=== PATIENT | male | born 1960 | race Caucasian/White ===

== ENCOUNTER 2017-10-28 10:39 | Outpatient (CLI) | payer BC ==
[2017-10-28] VITALS (16 sets, daily range): BP systolic 122–159; BP diastolic 62–80; Ht 177.8 cm; Wt 103.3 kg
[~2017-10-28] VITALS: Ht 177.8 cm; Wt 103.3 kg
--- NOTE | ~2017-10-28 | HEMODYNAMI ---
PATIENT:ROYA RAE MEDICAL RECORD: [id number] : 62 LOCATION:[facility]# [id number] ADMISSION DATE: 10/28/17 Generatedon:10/28/201712:11 Patient name: ROYA RAE Patient #: [id number] SSN: : 1960 Date of study: 10/28/2017 Page: Of Hemodynamic Procedure Report Patient Data Patient Demographics Procedure consent was obtained First Name: ROYA Gender: Male Last Name: BUTCH : 1960 Patient #: [id number] Age: 57 year(s) Race: Unknown Additional ID: [id number] Contact details Address: [address] [facility] State: [place] City: [place] Zip code: [address] Past Medical History Allergies Allergen Reaction Date Comments Reported Other allergy 10/28/2017 PLAVIX Admission Admission Data Admission Date: 10/28/2017 Admission Time: 10:39 Procedure Procedure Types Cath Procedure Diagnostic Procedure LHC LHC w/Coronaries Sedation Charges Moderate Sedation up to 30 minutes PCI Procedure AMI/SVG/PLASTIC SHEETING CUTTER PTCA or Stent AMI-BMS/KAELYN Initial Procedure Description Procedure Date Procedure Date: 10/28/2017 Procedure Start Time: 11:24 Procedure End Time: 12:10 Procedure Staff Name Function Gomez Zhu MD Performing Physician Tia Sanders RT Monitor Wilbert Fortune RN Nurse Raf Perdomo RT Scrub Procedure Data Cath Procedure Fluoroscopy Diagnostic fluoroscopy Total fluoroscopy Time: 3.8 time: 3.8 min min Diagnostic fluoroscopy Total fluoroscopy dose: 615 dose: 615 mGy mGy Contrast Material Contrast Material Type Amount (ml) Isovue 300 75 Entry Location Entry Primary Successful Side Size Upsize Upsize Entry Closure Succes sful Closure Location (Fr) 1 (Fr) 2 (Fr) Remarks Device Remarks Femoral Right 6 Fr Exoseal artery Short Estimated blood loss: 10 ml Diagnostic catheters Device Type Used For End Catheter Placement MULTIPACK JL 4.0 5Fr Left Coronary catheter Angiography MULTIPACK 3DRC 5Fr Right Coronary catheter Angiography MULTIPACK Pigtail 5 Fr LV Angiography catheter Procedure Complications No complications Procedure Medications Medication Administration Route Dosage Oxygen NC 2 l/min Lidocaine 2% added to field 20 Heparin Flush Bag added to field 2 bags (1000units/500ml NS) 0.9% NaCl I.V. 100 ml/hr Versed I.V. 2 mg Fentanyl I.V. 25 mcg Versed I.V. 1 mg Fentanyl I.V. 25 mcg Angiomax (bolus) I.V. 16 ml Angiomax Drip I.V. drip 36.4 ml/hr (250mg/50ml NS) (Standard) Nitroglycerin IC/IA I.C. 200 mcg Angiomax Drip 36.4 ml/hr (250mg/50ml NS) (Standard) Hemodynamics Rest Heart Rate: 57 (bpm) Pressure Samples Time Site Value (mmHg) Purpose Heart Use Rate(bpm) 11:33 LV 180/-10,33 EDP 66 11:33 AO 161/84(117) Pullback 66 Gradients Valve Time Site Site 2 Mean SEP/DFP Peak To Heart Use 1 (mmHg) (sec/min) Peak Rate (mmHg) (bpm) Aortic 11:33 LV AO 6 20 66 161/84(117) Calculations Valve P-P Mean Valve Index Valve Source Name Gradient Area Flow (cm2) Aortic 6 6 Snapshots Pre Cath Intra NCS Post Cath Vital Signs Time Heart Resp SPO2 etCO2 NIBP (mmHg) Rhythm Pain Sedation Rate (ipm) (%) (mmHg) Status Level (bpm) 11:16:31 62 20 99 0 168/84(144) NSR w/ ST 0 (11) 10(A) Elevation , No pain 11:21:02 69 30 100 31.3 162/87(127) NSR w/ ST 0 (11) 10(A) Elevation , No pain 11:25:28 62 15 100 28.3 164/81(129) NSR w/ ST 0 (11) 10(A) Elevation , No pain 11:29:52 58 18 98 19.4 150/76(125) NSR w/ ST 0 (11) 10(A) Elevation , No pain 11:34:16 61 19 100 23.8 166/83(129) NSR w/ ST 0 (11) 10(A) Elevation , No pain 11:38:43 65 18 100 35.8 166/88(137) NSR w/ ST 0 (11) 10(A) Elevation , No pain 11:43:15 58 21 99 30.6 145/71(121) NSR 0 (11) 10(A) , No pain 11:47:31 72 26 98 30.6 158/115(130) NSR 0 (11) 10(A) , No pain 11:51:45 70 15 97 29.8 136/78(100) NSR 0 (11) 10(A) , No pain 11:56:05 65 15 98 34.3 138/73(123) NSR 0 (11) 10(A) , No pain 12:00:23 63 29 96 31.3 140/77(115) NSR 0 (11) 10(A) , No pain 12:04:43 65 23 96 37.2 134/75(105) NSR 0 (11) 10(A) , No pain 12:09:06 62 7 99 35.8 138/71(115) NSR 0 (11) 10(A) , No pain Medications Time Medication Route Dose Verified Delivered Reason Notes Effectiveness by by 11:17:31 Oxygen NC 2 Gomez Buffie used for l/min Marko Fortune RN procedure 11:17:38 Lidocaine 2% added to field 20ml Gomez Gomez for local vial Marko Zhu MD anesthetic 11:17:43 Heparin Flush added to field 2 Gomez Gomez used for Bag bags Marko Zhu MD procedure (1000units/500ml NS) 11:17:52 0.9% NaCl I.V. 100 Gomez Buffie Per physici an ml/hr Marko Fortune RN, MD 11:20:12 Versed I.V. 2 mg Gomez Buffie for sedatio n Marko Fortune RN, MD 11:20:18 Fentanyl I.V. 25 Gomez Buffie for sedatio n mcg Marko Fortune RN, MD 11:26:25 Versed I.V. 1 mg Gomez Buffie for sedatio n Marko Fortune RN, MD 11:26:30 Fentanyl I.V. 25 Gomez Buffie for sedatio n mcg Marko Fortune RN, MD 11:40:14 Angiomax (bolus) I.V. 16 ml Gomez Buffie for 250mg/50mlNS Marko Fortune RN anticoagulation 11:40:57 Angiomax Drip I.V. drip 36.4 Gomez Wilbert for (250mg/50ml NS) ml/hr Marko Fortune RN anticoagulation (Standard) 11:48:55 Nitroglycerin I.C. 200 Gomez Gomez Per physici an IC/IA mcg Marko Zhu MD, MD 11:49:53 Angiomax Drip I.V. 36.4 Gomez Gomez for (250mg/50ml NS) drip-discontinued ml/hr Marko Zhu MD anticoagulation (Standard) Procedure Log Time Note 11:10:08 Time tracking: Regular hours 11:10:12 Plan of Care:Hemodynamics will remain stable., Cardiac rhythm will remain stable., Comfort level will be maintained., Respiratory function will remain adequate., Patient/ family verbilizes understanding of procedure., Procedure tolerated without complication., Recovers from procedure without complications.. 11:10:17 Wilbert Fortune RN sent for patient. Start room use. 11:10:40 Use device set Femoral Dx 11:10:41 ACIST Syringe (16908) opened to sterile field. 11:10:42 Bag Decanter (2002S) opened to sterile field. 11:10:42 Medline Cath Pack ([id number]) opened to sterile field. 11:10:44 DIAGNOSTIC WIRE .035 260cm J wire (110428) opened to sterile field. 11:10:45 ACIST Hand Control (27683) opened to sterile field. 11:10:46 ACIST Manifold (27743) opened to sterile field. 11:10:47 DIAGNOSTIC Multipack 5Fr catheter set (LT1022) opened to sterile field. 11:10:48 Tegaderm 4 x 4 (1626W) opened to sterile field. 11:10:50 MICROPUNCTURE 4FR Cook (V86318) opened to sterile field. 11:11:42 Patient received from ED to CCL 2 Alert and oriented. Tansferred to table in Supine position. 11:11:42 Warm blankets applied, and namrata hugger turned on for patient comfort. 11:11:43 Correct patient and procedure confirmed by team. 11:11:44 Signed procedure consent form obtained from patient. 11:11:44 ECG and BP/O2 sat monitors applied to patient. 11:15:11 Vital chart was started 11:15:18 Rhythm: sinus rhythm 11:15:20 Full Disclosure recording started 11:15:26 H&P Date Dictated: 10/28/2017 Emergent; H&P N/A, ER History on chart.. 11:15:27 Pre-procedure instructions explained to patient. 11:15:27 Pre-op teaching completed and patient verbalized understanding. 11:15:28 Family in waiting room. 11:15:30 Patient NPO since Midnight. 11:15:45 Patient allergic to Other allergyPLAVIX 11:16:03 Is the patient allergic to Iodine/contrast media? No. 11:16:05 Is patient on blood thinner?No 11:16:09 Patient diabetic? No. 11:16:12 Previous problem with sedation/anesthesia? No ? 11:16:13 Snore? Yes 11:16:14 Sleep apnea? No 11:16:15 Deviated septum? No 11:16:16 Opens mouth fully? Yes 11:16:16 Sticks out tongue? Yes 11:16:21 Airway obstruction? No ? 11:16:30 Dentures? Yes PARTIAL OUT 11:16:32 Pre procedure: right dorsailis pedis pulse 2+ Normal; easily identifiable; not easily obliterated 11:16:36 Patient pain scale 0/10 ?. 11:16:41 IV patent on arrival in right hand with 0.9% NaCl at [facility]. 11:16:58 IV: SALINE LOCK IN LEFT HAND 11:17:09 Lab results completed and on chart. 11:17:12 Right groin area was prepped with chlora-prep and draped in sterile fashion 11:17:12 Alarms reviewed by R. N. 11:17:13 Sharps counted by scrub and verified by R.N. 11:17:31 Oxygen 2 l/min NC was administered by Wilbert Fortune RN; used for procedure; 11:17:31 SHEATH Prelude 6Fr 0.035 (NXI-7X-59-035) opened to sterile field. 11:17:38 Lidocaine 2% 20ml vial added to field was administered by Gomez Zhu MD; for local anesthetic; 11:17:43 Heparin Flush Bag (1000units/500ml NS) 2 bags added to field was administered by Gomez Zhu MD; used for procedure; 11:17:52 0.9% NaCl 100 ml/hr I.V. was administered by Buffie Fortune RN; Per physician; 11:17:59 Final Timeout: patient, procedure, and site verified with staff and physician. All members of the team are in agreement. 11:18:01 Right groin site verified by team. 11:18:03 Physical assessment completed. ASA score P 2 - A patient with mild systemic disease as per Gomez Zhu MD. 11:18:06 Sedation plan: IV Moderate Sedation Medication:Versed, Fentanyl 11:20:01 Baseline sample Acquired. 11:20:12 Versed 2 mg I.V. was administered by Wilbert Fortune RN; for sedation; ::18 Fentanyl 25 mcg I.V. was administered by Wilbert Fortune RN; for sedation; 11::42 Zero performed for pressure channel P1 11::58 Procedure started. 11:24:37 Local anesthetic to right femoral artery with Lidocaine 2% by Gomez Zhu MD.INITIAL ACCESS ONLY 11:26:25 Versed 1 mg I.V. was administered by Wilbert Forutne RN; for sedation; ::30 Fentanyl 25 mcg I.V. was administered by Wilbert Fortune RN; for sedation; 11:28:16 Access obtained with 4Fr micropunture. 11:28:23 A 6 Fr Short sheath was inserted into the Right Femoral artery 11:28:30 A MULTIPACK JL 4.0 5Fr catheter was advanced over the wire and used for Left Coronary Angiography. 11:30:58 Catheter removed. 11:31:08 A MULTIPACK 3DRC 5Fr catheter was advanced over the wire and used for Right Coronary Angiography. 11:31:41 Use device set NORRED PCI 11:31:48 INFLATOR Merit BasixCompak (DS3886) opened to sterile field. 11:31:49 COPILOT Valve Control (9382523) opened to sterile field. 11:31:52 BMW 190cm [place] 2 J wire ([id number]) opened to sterile field. 11:32:23 A MULTIPACK Pigtail 5 Fr catheter was advanced over the wire and used for LV Angiography. 11:33:25 LV gram done using DUTTON 11:33:30 Injector settings: Ml/sec: 10, Volume: 20, 11:33:39 LV hemodynamics recorded. 11:36:11 GUIDE 6FR ART 3.5 SH catheter ([id number]) opened to sterile field. 11:36:44 6 Fr ART 3.5 SH guide catheter was inserted over the wire 11:38:52 BMW wire advanced. 11:40:14 Angiomax (bolus) 16 ml I.V. was administered by Wilbert Fortune RN; for anticoagulation; 250mg/50mlNS 11:40:57 Angiomax Drip (250mg/50ml NS) (Standard) 36.4 ml/hr I.V. drip was administered by Wilbert Fortune RN; for anticoagulation; 11:42:05 Inflation number: 1 A EUPHORA 2.0 x 30 Balloon ([id number]) was prepped and advanced across the Mid RCA, then inflated to 10 AVIS for 0:07 (min:sec). 11:42:22 Inflation number: 2 The EUPHORA 2.0 x 30 Balloon ([id number]) was reinflated across the Mid RCA, to 10 AVIS for 0:07 (min:sec). 11:42:45 Balloon removed over the wire. 11:46:05 Inflation Number: 3 A WILBERT RX 3.5 x 30 stent ([id number]) was prepped and advanced across the Mid RCA. The stent was deployed at 16 AVIS for 0:14 (min:sec). 11:46:54 Stent catheter was removed intact over wire. 11:48:55 Nitroglycerin IC/IA 200 mcg I.C. was administered by Gomez Zhu MD; Per physician; 11:49:20 Wire removed. 11:49:22 Guide catheter removed. 11:49:53 Angiomax Drip (250mg/50ml NS) (Standard) 36.4 ml/hr I.V. drip-discontinued was administered by Gomez Zhu MD; for anticoagulation; 11:50:36 Sheath removed intact; hemostasis achieved with Exoseal to the Right Femoral artery. 11:50:41 Procedure ended.(Physican Out) 11:51:02 Fluoroscopy time 03.80 minutes. 11:51:06 Fluoroscopy dose: 615 mGy 11:51:06 Flurop Dose total: 615 11:51:09 Contrast amount:Isovue 300 75ml. 11:51:10 Sharps counted by scrub and verified by R.N. 11:51:12 Insertion/operative site no bleeding no hematoma. 11:51:14 Post-op/insertion site Right Femoral artery dressed using a 4 x 4 and Tegaderm. 11:51:17 Post right femoral artery:stable, clean and dry 11:51:19 Post Procedure Pulses reassessed and unchanged 11:51:21 Post-procedure physical assessment completed. ASA score P 2 - A patient with mild systemic disease as per Gomez Zhu MD. 11:51:23 Post procedure rhythm: unchanged. 11:51:26 Estimated blood loss: 10 ml 11:51:27 Post procedure instruction explained to patient.Patient verbalizes understanding. 11:51:27 Patient needs reinforcement of post procedure teaching. 11:51:33 Procedure Complication : No complications 11:51:35 See physician's report for complete and final results. 11:51:52 EXOSEAL 6Fr (EX600) opened to sterile field. 11:52:01 CALLED FOR CV BED 11:53:54 Procedure type changed to Cath procedure, Diagnostic procedure, LHC, LHC w/Coronaries, Sedation Charges, Moderate Sedation up to 30 minutes, PCI procedure, AMI/SVG/PLASTIC SHEETING CUTTER PTCA or Stent, AMI-BMS/KAELYN Initial 11:55:05 Procedure and supply charges have been captured, reviewed, submitted and are correct. 11:58:18 NUNO CALLED BACK , PATIENT GOING TO CV03 WAITING ON STAT CLEAN. 12:10:36 Vital chart was stopped 12:10:39 Report given to CVICU. 12:10:43 Patient transfered to CVICU with Bed. 12:10:51 Procedure ended. 12:10:51 Full Disclosure recording stopped 12:10:55 End room use (Document Last) Intervention Summary Intervention Notes Time ActionType Lesion and Equipment Used Action# Pressure Duration Attributes 11:42:05 Inflate Mid RCA EUPHORA 2.0 x 1 10 00:08 balloon 30 Balloon ([id number]) 11:42:22 Reinflate Mid RCA EUPHORA 2.0 x 2 10 00:08 balloon 30 Balloon ([id number]) 11:46:05 Place stent Mid RCA WILBERT RX 3.5 x 3 16 00:14 30 stent ([id number]) Device Usage Item Name Manufacture Quantity Catalog Number Hospital Part Current Minimal Lot# / Charge Number Stock Stock Serial# Code ACIST Syringe Acist 1 22292 733030 263187 678008 20 (27409) Medical Systems Inc Bag Decanter Microtek 1 2001S 449216 54689 935970 5 (2001S) Medical Inc. Medline Cath Cardinal 1 [id number] 051636 40212 936478 5 Pack Health ([id number]) DIAGNOSTIC WIRE [place] 1 370730 122683 162458 989374 30 .035 260cm J wire (889107) ACIST Hand Acist 1 61960 675328 435355 402345 5 Control (66043) Medical Systems Inc ACIST Manifold Acist 1 24747 579491 381852 082886 5 (94852) Medical Systems Inc DIAGNOSTIC Cardinal 1 GB6802 908767 02718 154416 30 Multipack 5Fr Health catheter set (BG6207) Tegaderm 4 x 4 3M 1 1626W 966806 852979 728108 5 (1626W) MICROPUNCTURE Cook Medical 1 B72227 639495 970235 322856 5 4FR Include Fitness (N99554) SHEATH Prelude Merit 1 ROO-8W-55-35 608066 8365484 084836 5 6Fr 0.035 Medical (URW-5D-30-035) MULTIPACK JL Cardinal 1 497884 5 4.0 5Fr Health catheter MULTIPACK 3DRC Cardinal 1 600767 5 5Fr catheter Health INFLATOR Merit Merit 1 YF4976 644355 951815 659394 15 [facility] (WR7733) COPILOT Valve Alexander 1 8125132 802594 605794 372034 5 Control Vascular (3489159) BMW 190cm Alexander 1 [id number] 083283 53774 373802 5 [place] 2 J Vascular wire (3635055P) MULTIPACK Cardinal 1 147167 5 Pigtail 5 Fr Health catheter GUIDE 6FR ART [place] 1 [id number] 070211 181734 741611 0 3.5 SH catheter Scientific ([id number]) EUPHORA 2.0 x Medtronic 1 [id number] 237639 283111 086332 5 [id number] 30 Balloon ([id number]) WILBERT RX 3.5 x Medtronic 1 [id number] 073988 2091385 933236 5 [id number] 30 stent ([id number]) EXOSEAL 6Fr Cardinal 1 EX600 240461 969366 180527 10 (EX600) Health Signature Audit [place] Stage Time Signature Unsigned Intra-Procedure 10/28/2017 Tia 12:11:09 PM Counts RT(R) Signatures Monitor : Tia Signature : Counts RT Date : Time : [address] [place] [address]
[2017-10-28 10:58] LABS: BASOPHILS 0.3 % (0-2); EOSINOPHILS 1.2 % (0-7); HEMATOCRIT 45.5 % (42.0-54.0); HEMOGLOBIN 15.8 g/dL (13.5-17.5); IMMATURE GRANULOCYTES 0.6 % (0-5); LYMPHOCYTES 33.1 % (15-50); MCH 31.7 pg (26.0-34.0); MCHC 34.7 g/dL (31.0-37.0); MCV 91.2 fL (80.0-100.0); MEAN PLATELET VOLUME 10.5 fL (7.4-10.4); MONOCYTES 7.9 % (2-11); NEUTROPHILS 56.9 % (40-80); PLATELET COUNT 253 10x3/uL (130-400); RBC 4.99 10x6/uL (4.20-6.10); RDW 12.8 % (11.5-14.5); WBC 13.3 10x3/uL (4.8-10.8)
[2017-10-28 11:23] LABS: ALBUMIN 3.4 g/dL (3.4-5.0); ALKALINE PHOSPHATASE 68 U/L (46-116); ALT (SGPT) 42 U/L (10-68); BILIRUBIN - TOTAL 0.47 mg/dL (0.2-1.3); CALC OSMOLALITY 274 mosm/kg (275-300); CALCIUM 8.9 mg/dL (8.5-10.1); CARBON DIOXIDE 25.5 mmol/L (21.0-32.0); CHLORIDE - SERUM 100 mmol/L (98-107); CHOL - HDL RATIO 6.7 ratio (2.3-4.9); CHOLESTEROL, TOTAL 193 mg/dL (0-200); CKMB 0.6 U/L (0.0-3.6); CREATINE KINASE 132 UL (21-232); CREATININE - SERUM 0.9 mg/dL (0.6-1.3); GLUCOSE 172 mg/dL (74-106); HDL CHOLESTEROL 29 mg/dL (32-96); POTASSIUM - SERUM 4.7 mmol/L (3.5-5.1); SODIUM 134 mmol/L (136-145); TRIGLYCERIDE 420 mg/dL (30-200); UREA NITROGEN 21 mg/dL (7-18); eGFR NON AFRICAN AMERICAN > 90 mL/min (90-120)
[2017-10-28 11:29] LABS: TROPONIN-I < 0.017 ng/mL (0.000-0.060)
[2017-10-29] VITALS (12 sets, daily range): BP systolic 116–146; BP diastolic 59–79
[2017-10-29] MEDS ORDERED: LIPITOR20 MG PO (10:54)
[2017-10-29] MEDS ORDERED: BRILINTA90 MG PO (10:54)
[2017-10-29] MEDS ORDERED: LISINOPRIL10 MG PO (10:55)
== END 2017-10-29 12:49 | disposition home or self-care (01) ==
LOC: OBSVTIME → D.ER 10:39 → D.CATH 10:39 → EDSTATUS 11:30 → D.CVICU 13:02 → D.ER 13:02 → D.CVICU 13:02 → OBSVTIME 13:02 → D.CVICU 10-29 12:49 → D.CATH 10-29 12:49
PROVIDERS: Emergency Medicine
DX: I21.3 ST elevation (STEMI) myocardial infarction of unspecified site (principal); Z72.0 Tobacco use

== ENCOUNTER → 2017-11-11 08:37 | Outpatient (CLI) | payer BC ==
[2017-10-28 14:37] VITALS: BMI 32.9
--- NOTE | ~2017-11-11 | EC ---
PATIENT:ROYA RAE DATE OF SERVICE: 11/11/17 SEX: M MEDICAL RECORD: [id number] DATE OF : 62 LOCATION:[facility] AGE OF PATIENT: 57 ADMISSION DATE: 11/11/17 REFERRING PHYSICIAN: INTERPRETING PHYSICIAN: RANJAN SABA MD ECHOCARDIOGRAM REPORT ECHO CHARGES 4 ECHO COMPLETE Date: 11/11 CLINICAL DIAGNOSIS: CAD ECHOCARDIOGRAPHIC MEASUREMENTS (adult normal given) AC root (d.<3.7cm) 3.6 cm LV Septum d (<1.2 cm> 1.3 cm Valve Excursion 2.0 cm LV Septum (systole) 1.9 cm Left Atria (s.<4.0cm> 3.3 cm LVPW d(<1.2cm) 1.4 cm RV (d.<2.3cm) 2.5 cm LVPW (sytole) 2.0 cm LV diastole(<5.6CM) 5.2 cm MV E-F(>70mm/sec) cm LV systole 3.6 cm LVOT Diameter 1.9 cm MV exc.(>10mm) cm Est.ejection fraction (50-75%) % DOPPLER: LVIT cm/sec A 46.0 cm/sec E 87.0 cm/sec LA cm/sec RVSP 24.0 mmHg LVOT 100 cm/sec AOP1/2T m/s Asc. Ao 143 cm/sec RVOT 71.0 cm/sec RA cm/sec PA 97.0 cm/sec AV Gradient Peak 8.2 mmHg AV Mean 4.3 mmHg AV Area 1.8 cm MV Gradient Peak 4.6 mmHg MV Mean 1.2 mmHg MV Area cm COMMENTS: Equipment Cleaner And Tester: 1 PIA ELLERSLIE Gunsmith Apprentice: 4 Dr. Saba TAPE# PACS Pericardial Effusion N DATE OF SERVICE: PROCEDURE: Transthoracic echocardiogram. FINDINGS: 1. Left ventricle has mild left ventricular hypertrophy with inflow characteristics that are normal. Ejection fraction 55% without any significant regional wall motion abnormalities. 2. The aortic valve is a trileaflet structure, normal. 3. The mitral valve has trace mitral regurgitation. ECHOCARDIOGRAM REPORT [id number] ROYA RAE 4. The left atrium is normal. 5. The tricuspid valve has trace tricuspid regurgitation. RVSP is normal. 6. The pericardium is normal. 7. The right ventricle is normal. 8. The right atrium is normal. CONCLUSIONS: The patient has evidence of mild left ventricular hypertrophy, otherwise normal echocardiogram. TRANSINT:[id number] Voice Confirmation ID: [id number] DOCUMENT ID: [id number] RANJAN SABA MD at 0741 CC: [id number] DICTATION DATE: 11/18/17 1049 WET INSPECTOR OPTICAL GLASS: 11/18/17 1223 DEP CLI 11/11/17 [id number] [place] [address]
[~2017-11-11 08:37] MED LIST: BRILINTA90 MG PO; LIPITOR20 MG PO; LISINOPRIL10 MG PO
== END | disposition home or self-care (01) ==
LOC: D.ECHO 08:37
DX: I25.10 Atherosclerotic heart disease of native coronary artery without angina pectoris (principal); E78.5 Hyperlipidemia, unspecified

== ENCOUNTER → 2017-11-11 16:20 | Outpatient (CLI) | payer BC ==
[2017-10-28 14:37] VITALS: BMI 32.9
[2017-11-11 16:45] LABS: CHOL - HDL RATIO 3.6 ratio (2.3-4.9); LDL-HDL RATIO 2.1 ratio (1.5-3.5)
== END | disposition home or self-care (01) ==
LOC: D.LABREF 16:20
PROVIDERS: Internal Medicine Cardiovascular Disease
DX: E78.5 Hyperlipidemia, unspecified (principal)

== ENCOUNTER → 2018-06-25 09:17 | Outpatient (CLI) | payer BC ==
[2017-10-28 14:37] VITALS: BMI 32.9
--- NOTE | ~2018-06-25 | ST ---
PATIENT:ROYA RAE MEDICAL RECORD: [id number] SEX: M LOCATION:[facility] ORDER #: ADMISSION DATE: 06/25/18 AGE OF PATIENT: 57 REFERRING PHYSICIAN: INTERPRETING PHYSICIAN: ANKITA MELGAR MD DATE OF SERVICE: 06/25/2018 PROCEDURES: Nuclear stress test. INDICATION: Chest pain, coronary artery disease, hypertension, hyperlipidemia. DESCRIPTION OF PROCEDURE: He was exercised in standard Lexiscan protocol with 33 mCi injected at peak stress, 11 mCi of sestamibi injected at rest previously for rest images. FINDINGS: Gated SPECT reveals a preserved ejection fraction at 65% with good wall motion and thickening and brightening throughout all segments. SPECT imaging Cardiolite was used as myocardial fusion agent. There is a mixed perfusion defect inferiorly. This includes the basal, mid, apical, inferior segments, partially fixed, partially reversible, includes the apex as well. The remaining segments with homogeneous uptake at rest and stress. OVERALL IMPRESSION: 1. This is an abnormal nuclear stress test with a mixed perfusion defect partially fixed, partially reversible throughout the inferior and apical segments. 2. Gated SPECT reveals preserved ejection fraction greater than 60%. In this patient with ongoing symptomatology, the current scan does suggest the presence of hemodynamically significant coronary artery disease. We will proceed with coronary angiography as followup study. TRANSINT:[id number] Voice Confirmation ID: [id number] DOCUMENT ID: [id number] ANKITA MELGAR MD at 1718 CC: LOREE SOLIS [id number] DICTATION DATE: 06/25/18 1616 TRANSPORTATION ENGINEERING TECHNICIAN: 06/26/18 0842 [facility] CLI 06/25/18 [id number] [place] [address]
== END | disposition home or self-care (01) ==
LOC: D.HCCARDIO 09:17
DX: I25.10 Atherosclerotic heart disease of native coronary artery without angina pectoris (principal)

== ENCOUNTER → 2018-07-04 06:50 | Outpatient (CLI) | payer BC ==
[2018-07-04 08:51] LABS: BASOPHILS 0.5 % (0-2); EOSINOPHILS 2.2 % (0-7); HEMATOCRIT 43.1 % (42.0-54.0); HEMOGLOBIN 14.7 g/dL (13.5-17.5); IMMATURE GRANULOCYTES 0.2 % (0-5); LYMPHOCYTES 26.2 % (15-50); MCH 31.6 pg (26.0-34.0); MCHC 34.1 g/dL (31.0-37.0); MCV 92.7 fL (80.0-100.0); MEAN PLATELET VOLUME 9.9 fL (7.4-10.4); MONOCYTES 7.3 % (2-11); NEUTROPHILS 63.6 % (40-80); PLATELET COUNT 225 10x3/uL (130-400); RBC 4.65 10x6/uL (4.20-6.10); RDW 12.5 % (11.5-14.5); WBC 8.8 10x3/uL (4.8-10.8)
[2018-07-04 08:57] LABS: CALC OSMOLALITY 281 mosm/kg (275-300); CALCIUM 9.5 mg/dL (8.5-10.1); CARBON DIOXIDE 29.3 mmol/L (21.0-32.0); CHLORIDE - SERUM 102 mmol/L (98-107); CREATININE - SERUM 0.9 mg/dL (0.6-1.3); GLUCOSE 174 mg/dL (74-106); POTASSIUM - SERUM 4.2 mmol/L (3.5-5.1); SODIUM 138 mmol/L (136-145); UREA NITROGEN 18 mg/dL (7-18); eGFR NON AFRICAN AMERICAN > 90 mL/min (90-120)
== END | disposition home or self-care (01) ==
LOC: D.CATH 06:50
PROVIDERS: Internal Medicine Interventional Cardiology
DX: I25.119 Atherosclerotic heart disease of native coronary artery with unspecified angina pectoris (principal); Z01.812 Encounter for preprocedural laboratory examination

== ENCOUNTER 2019-08-21 03:03 | Observation (INO) | payer BC ==
[~2019-08-21] VITALS: Ht 177.8 cm; Wt 104.1 kg
--- NOTE | ~2019-08-21 | HEMODYNAMI ---
PATIENT:ROYA RAE MEDICAL RECORD: [id number] : 62 [id number] ADMISSION DATE: 08/21/19 Generatedon:08/21/201914:29 Patient name: ROYA RAE Patient #: [id number] SSN: [id number] : 1960 Date of study: 08/21/2019 Page: Of Hemodynamic Procedure Report Patient Data Patient Demographics Procedure consent was obtained First Name: ROYA Gender: Male Last Name: BUTCH : 1960 Middle Initial: LOLITA Age: 59 year(s) Patient #: [id number] Race: SSN: [id number] Additional ID: [id number] Contact details Address: [address] State: [place] City: [place] Zip code: [address] Past Medical History Allergies Allergen Reaction Date Comments Reported Other allergy 10/28/2017 PLAVIX Other allergy 08/21/2019 PCN/CLOPIDOGREL(FROM PLAVIX) Admission Admission Data Admission Date: 08/21/2019 Admission Time: 6:18 Arrival Date: 08/21/2019 Arrival Time: 0:00 Admit Source: Emergency Insurance Payor: Private department health insurance Room #: D.2121 [facility] #: [id number] Height (in.): 70.08 BSA: 2.21 (m2) Height (cm.): 178 BMI: 32.82 (kg/m2) Weight (lbs.): 229.28 Weight (kg.): 104 Lab Results Lab Result Date: 08/21/2019 Lab Result Time: 0:00 Biochemistry Name Units Result Min Max BUN mg/dl 16 --(---*)-- 7 18 Creatinine mg/dl 0.8 --(-*--)-- 0.6 1.3 eGFR ml/min 90 --(*---)-- 90 120 NONAFRICAN CBC Name Units Result Min Max Hematocrit % 49.2 --(--*-)-- 42 54 Hemoglobin g/dl 17.1 --(---*)-- 13.5 17.5 Procedure Procedure Types Cath Procedure Diagnostic Procedure C LH w/Coronaries FFR/IVUS FFR Initial Sedation Charges Moderate Sedation up to 15 minutes PCI Procedure Coronary Stent Coronary Stent Initial Hemochron ACT Test Procedure Description Procedure Date Procedure Date: 08/21/2019 Procedure Start Time: 14:07 Procedure End Time: 14:27 Procedure Staff Name Function Marcel Stapleton MD Performing Physician Paty Maravilla RT Monitor Alexsander Winters RN Nurse Aliya Mcnair RT Scrub Indication CAD Procedure Data Cath Procedure Fluoroscopy Diagnostic fluoroscopy Total fluoroscopy Time: 2.7 time: 2.7 min min Diagnostic fluoroscopy Total fluoroscopy dose: 644 dose: 644 mGy mGy Contrast Material Contrast Material Type Amount (ml) Isovue 300 53 Entry Location Entry Primary Successful Side Size Upsize Upsize Entry Closure Garcia ccessful Closure Location (Fr) 1 (Fr) 2 (Fr) Remarks Device Remarks Radial Right 6 Fr Mechanical artery Short Compression Estimated blood loss: 10 ml Diagnostic catheters Device Type Used For End Catheter Placement DIAGNOSTIC Daniel 110cm Procedure 5Fr catheter ([id number]) Procedure Complications No complications Procedure Medications Medication Administration Route Dosage 0.9% NaCl I.V. 100 ml/hr Oxygen etCO2 Nasal cannula 2 l/min Heparin Flush Bag added to field 2 bags (1000units/500ml NS) Lidocaine 2% added to field 20 Radial Cocktail added to field 1 syringe (Verapamil 2mg/Nitro 400mcg/Heparin 1500units) Versed I.V. 2 mg Fentanyl I.V. 100 mcg Radial Cocktail I.A. 1 syringe (Verapamil 2mg/Nitro 400mcg/Heparin 1500units) Versed I.V. 2 mg Heparin Bolus I.V. 4000 units Hemodynamics Rest BSA: 2.21 (m2) HGB: 17.1 (g/dl) O2 Consumption: Estimated: 245.47 (ml/min) O2 Co nsumption indexed: Estimated:111.07 (ml/min/m) Heart Rate: 52 (bpm) Snapshots Pre Cath Intra NCS Post Cath Vital Signs Time Heart Resp SPO2 etCO2 NIBP (mmHg) Rhythm Pain Sedation Rate (ipm) (%) (mmHg) Status Level (bpm) 13:52:56 50 11 97 33 155/83(122) NSR 0 (11) 10(A) , No pain 13:57:10 50 20 96 26.9 153/83(108) NSR 0 (11) 10(A) , No pain 14:01:33 54 17 97 29.2 136/64(108) NSR 0 (11) 10(A) , No pain 14:05:38 50 15 95 27 116/74(92) NSR 0 (11) 10(A) , No pain 14:09:50 56 25 96 38.2 123/75(93) NSR 0 (11) 10(A) , No pain 14:14:00 61 11 94 26.2 99/60(75) NSR 0 (11) 9(A) , No pain 14:18:57 56 13 94 33 123/75(90) NSR 0 (11) 9(A) , No pain 14:23:15 52 14 95 38.2 136/72(99) NSR 0 (11) 9(A) , No pain 14:27:15 0 No Cuff NSR 0 (11) 9(A) , No pain Medications Time Medication Route Dose Verified Delivered Reason Not es Effectiveness by by 13:56:50 0.9% NaCl I.V. 100 Alexsander Alexsander Per physician ml/hr Singh Winters RN RN 13:57:00 Oxygen etCO2 2 l/min Alexsander Alexsander for low 02 sats Nasal Lorigan Singh cannula RN RN 13:57:12 Heparin Flush added 2 bags Alexsander Alexsander used for Bag to Lorigan Lornagi procedure (1000units/500ml [facility] RN RN NS) 13:57:25 Lidocaine 2% added 20ml Alexsander Alexsander for local to vial Lorigan Lorigan anesthetic RN RN 13:57:45 Radial Cocktail added 1 Alexsander Alexsander used for (Verapamil to syringe Lorigan Lorigan procedure 2mg/Nitro field RN RN 400mcg/Heparin 1500units) 14:10:19 Versed I.V. 2 mg Alexsander Alexsander for sedation Singh Winters RN RN 14:10:25 Fentanyl I.V. 100 mcg Alexsander Alexsander for sedation Singh Winters RN RN 14:10:34 Radial Cocktail I.A. 1 Alexsander Marcel for (Verapamil syringe Singh Stapleton MD vasodilation 2mg/Nitro RN 400mcg/Heparin 1500units) 14:13:02 Versed I.V. 2 mg Alexsander Alexsander for sedation Singh Winters RN RN 14:16:48 Heparin Bolus I.V. 4000 Alexsander Alexsander for units Singh Winters anticoagulation RN printing technician Log Time Note 13:35:47 Alexsander Winters RN sent for patient. Start room use. 13:41:18 Informed consent obtained and on chart 13:41:59 Indication : CAD 13:44:40 Patient Height : 70.08 inches 13:44:45 Patient Weight : 229.28 lbs 13:44:53 Arrival Date: 08/21/2019 12:00:00 AM 13:45:19 Insurance Payor : Private health insurance 13:45:46 Admit Source: Emergency department 13:46:32 Lab Result : Hemoglobin 17.1 g/dl 13:46:32 Lab Result : Hematocrit 49.2 % 13:46:32 Lab Result : BUN 16 mg/dl 13:46:32 Lab Result : Creatinine 0.8 mg/dl 13:46:32 Lab Result : eGFR NONAFRICAN 90 ml/min 13:46:42 Procedure Status Urgent Heart Cath (IP). 13:46:49 Time tracking: Regular hours (M-F 7:00 - 5:00) 13:46:56 Plan of Care:Hemodynamics will remain stable., Cardiac rhythm will remain stable., Comfort level will be maintained., Respiratory function will remain adequate., Patient/ family verbilizes understanding of procedure., Procedure tolerated without complication., Recovers from procedure without complications.. 13:47:51 Patient received from Med II to CCL 1 Alert and oriented. Tansferred to table in Supine position. 13:47:53 Warm blankets applied, and namrata hugger turned on for patient comfort. 13:47:55 Correct patient and procedure confirmed by team. 13:47:55 ECG and BP/O2 sat monitors applied to patient. 13:47:56 Vital chart was started 13:47:57 Baseline sample Acquired. 13:52:12 Baseline sample Acquired. 13:52:24 Rhythm: sinus bradycardia 13:52:26 Full Disclosure recording started 13:52:27 - 13:52:43 H&P Date Dictated: 08/21/2019 Within 30 days and on chart., ER History o n chart.. 13:52:45 Pre-procedure instructions explained to patient. 13:52:46 Pre-op teaching completed and patient verbalized understanding. 13:52:59 Family unavailable. 13:53:05 Patient NPO since Midnight. 13:53:46 Patient allergic to Other allergyPCN/CLOPIDOGREL(FROM PLAVIX) 13:53:55 Is the patient allergic to Iodine/contrast media? No. 13:53:57 Was the patient premedicated? Yes 13:54:00 Is patient on blood thinner?Yes 13:54:04 ACC The patient was administered the following blood thiners within the last 24 hours: ACCBrilinta 13:54:50 BRILINTA TODAY 08-21-2019. 13:55:42 Patient diabetic? No. 13:55:45 ----Pre-sedation anethsthesia assessment.---- 13:55:54 Previous problem with sedation/anesthesia? No ? 13:55:57 Snore? Yes 13:56:00 Sleep apnea? No 13:56:03 Deviated septum? No 13:56:05 Opens mouth fully? Yes 13:56:07 Sticks out tongue? Yes 13:56:11 Airway obstruction? No ? 13:56:16 Dentures? No ? 13:56:24 Pre procedure: right dorsailis pedis pulse 2+ Normal; easily identifiable; not easily obliterated 13:56:32 Modified Jhon's test Ulnar < 7 seconds 13:56:50 0.9% NaCl 100 ml/hr I.V. was administered by Alexsander Winters RN; Per physician; Verbal order read back and verified. 13:56:55 Patient pain scale 0/10 ?. 13:57:00 Oxygen 2 l/min etCO2 Nasal cannula was administered by Alexsander Winters RN; for low 02 sats; Verbal order read back and verified. 13:57:12 Heparin Flush Bag (1000units/500ml NS) 2 bags added to field was administered by Alexsander Lorigan RN; used for procedure; Verbal order read back and verified. 13:57:25 Lidocaine 2% 20ml vial added to field was administered by Alexsander Winters RN; for local anesthetic; Verbal order read back and verified. 13:57:45 Radial Cocktail (Verapamil 2mg/Nitro 400mcg/Heparin 1500units) 1 syring e added to field was administered by Alexsander Winters RN; used for procedure; Verbal order read back and verified. 13:57:45 IV patent on arrival in left antecubital with 0.9% NaCl at [facility]. 13:57:52 Lab results completed and on chart. 13:57:59 Stress Test: no; N/A ? 14:00:29 Risk of Mortality: 0.1 14:00:34 Risk of blood transfusion: 0.8 14:00:39 Risk of MENDOZA: 4.5 14:00:44 Right Radial & Right Groin area was prepped with chlora-prep and draped in sterile fashion 14:00:46 Alarms reviewed by R. N. 14:00:47 Sharps counted by scrub and verified by R.N. 14:00:56 Use device set Radial Dx or PCI 14:00:59 ACIST Syringe (49098) opened to sterile field. 14:01:00 Medline Cath Pack ([id number]) opened to sterile field. 14:01:00 Bag Decanter (2002S) opened to sterile field. 14:01:01 ACIST Hand Control (76767) opened to sterile field. 14:01:02 ACIST Manifold (13043) opened to sterile field. 14:01:03 Tegaderm 4 x 4 (1626W) opened to sterile field. 14:01:03 MBrace Wrist Support ([id number]) opened to sterile field. 14:01:05 EMERALD Guide Wire (582-723) opened to sterile field. 14:01:07 SHEATH 6FR RAIN (6076988) opened to sterile field. 14:03:07 Zero performed for pressure channel P1 14:05:19 Physician arrived 14:05:20 --------ALL STOP TIME OUT------ 14:05:21 Final Timeout: patient, procedure, and site verified with staff and physician. All members of the team are in agreement. 14:05:25 Right Radial & Right Groin site verified by team. 14:05:32 Fire Safety Assessment: A--An alcohol-based skin anteseptic being used preoperatively., C--Open oxygen or nitrous oxide is being used., D--An ESU, laser, or fiber-optic light is being used. 14:05:36 Physical assessment completed. ASA score P 2 - A patient with mild systemic disease as per Marcel Stapleton MD. 14:05:43 1) 90+ Normal kidney functon but urine findings or structural abnormalities or genetic trait point to kidney disease. 14:05:51 Maximum allowable contrast dose (3.7 X eGFR X 0.75)249 ml. 14:06:01 Sedation plan: IV Moderate Sedation Medication:Versed, Fentanyl 14:07:31 Procedure started. 14:07:57 Local anesthetic to right radial artery with Lidocaine 2% by Marcel Stapleton MD.INITIAL ACCESS ONLY 14:08:58 A 6 Fr Short sheath was inserted into the Right Radial artery 14:09:38 A DIAGNOSTIC Daniel 110cm 5Fr catheter ([id number]) was advanced over the wire and used for Procedure. 14:09:58 LV gram done using DUTTON 14:10:02 Injector settings: Ml/sec: 5, Volume: 15, 14:10:19 Versed 2 mg I.V. was administered by Alexsander Winters RN; for sedation; Verbal order read back and verified. 14:10:25 Fentanyl 100 mcg I.V. was administered by Alexsander Winters RN; for sedation; Verbal order read back and verified. 14:10:26 EF : 60 % 14:10:34 Radial Cocktail (Verapamil 2mg/Nitro 400mcg/Heparin 1500units) 1 syring e I.A. was administered by Marcel Stapleton MD; for vasodilation; Verbal order read back and verified. 14:10:43 LCA angiography performed. 14:11:39 Injector settings: Ml/sec: 3, Volume: 6, 14:11:45 RCA angiography performed. 14:12:01 Injector settings: Ml/sec: 3, Volume: 6, 14:12:16 Catheter removed. 14:12:45 [place] Verrata Plus pressure wire (56217P) opened to sterile field. 14:12:55 INFLATOR Merit BasixCompak (KD5025) opened to sterile field. 14:13:02 Versed 2 mg I.V. was administered by Alexsander Winters RN; for sedation; Verbal order read back and verified. 14:13:37 GUIDE 6FR AR 2.0 catheter ([id number]) opened to sterile field. 14:13:55 6 Fr AR2 guide catheter was inserted over the wire 14:14:52 FFR/IFR wire advanced. 14:15:02 Wire advanced across lesion. 14:15:29 mRCA lesion measured at 0.84 with IFR 14:16:04 Pre PCI Site: [place] mRCA has 70% stenosis. 14:16:11 ACC Pre-intervention JESUS Flow is 3. 14:16:48 Heparin Bolus 4000 units I.V. was administered by Alexsander Winters RN; for anticoagulation; Verbal order read back and verified. 14:17:20 Place stent Inflation Number: 1 A WILBERT RX 3.5 x 30 stent ([id number]) was prepped and advanced across the Mid RCA . The stent was deployed at 21 AVIS for 0:00 (min:sec) . 14:17:36 Inflation number: 2 The stent balloon was then re-inflated across the Mid RCA to 21 AVIS for 0:00 (min:sec) . 14:18:55 Stent catheter was removed intact over wire. 14:19:07 Wire removed. 14:19:08 Guide catheter removed. 14:19:27 Post PCI Site: [place] mRCA has 0% stenosis. 14:19:39 ACC Post-intervention JESUS Flow is 3. 14:19:57 Procedure ended.(Physican Out) 14:20:07 ZEPHYR REGULAR TR BAND (197230) opened to sterile field. 14:20:18 Sheath removed intact; hemostasis achieved with Mechanical Compression to the Right Radial artery. 14:21:19 Contrast amount:Isovue 300 53ml. 14:21:32 Fluoroscopy time 02.70 minutes. 14::41 Flurop Dose total: 644 14::41 Fluoroscopy dose: 644 mGy 14:22:24 Dose Area Product 80984 mGy/cm. 14:22:28 Maximum allowable dose exceeded? No. 14:22:29 Sharps counted by scrub and verified by R.N. 14:22:55 [place] band inflated with 10cc of air. 14:23:04 Post right radial artery:stable 14:23:07 Post Procedure Pulses reassessed and unchanged 14:23:13 Post-procedure physical assessment completed. ASA score P 2 - A patient with mild systemic disease as per Marcel Stapleton MD. 14:23:18 Post procedure rhythm: unchanged. 14:23:22 Estimated blood loss: 10 ml 14:23:25 Post procedure instruction explained to patient.Patient verbalizes understanding. 14:23:26 Patient needs reinforcement of post procedure teaching. 14:24:04 Procedure type changed to Cath procedure, Diagnostic procedure, LHC, C w/Coronaries, FFR/IVUS, FFR Initial, Sedation Charges, Moderate Sedation up to 15 minutes, PCI procedure, Coronary Stent, Coronary Stent Initial, Hemochron ACT Test 14:25:49 ACT drawn and resulted at 268 seconds. (normal therapeutic range 180-24 0 seconds). 14:26:03 Procedure and supply charges have been captured, reviewed, submitted an d are correct. 14:27:31 Procedure Complication : No complications 14:27:34 Vital chart was stopped 14:27:37 [facility] Findings: MVD- PCI performed (see procedure note) 14:27:43 Operative report dictated upon procedure completion. 14:27:44 See physician's report for complete and final results. 14:27:50 Report given to [facility]. 14:27:54 Patient transfered to [facility] with Bed. 14:27:58 Procedure ended. 14:27:58 Full Disclosure recording stopped 14:28:27 End room use (Document Last) Intervention Summary Intervention Notes Time ActionType Lesion and Equipment Used Action# Pressure Duration Attributes 14:17:20 Place stent Mid RCA WILBERT RX 3.5 x 1 21 00:00 30 stent ([id number]) 14:17:36 Reinflate Mid RCA WILBERT RX 3.5 x 2 21 00:00 stent 30 stent balloon ([id number]) Device Usage Item Name Manufacture Quantity Catalog Hospital Part Current Minimal Lot# / Number Charge Number Stock Stock Serial# Code ACIST Syringe Acist 1 10057 838373 676411 207882 20 (55043) Medical Eventbrite Inc Medline Cath Medline 1 [id number] 961166 83063 459245 5 Pack ([id number]) Bag Decanter Microtek 1 110562 07022 818303 5 (2002S) Medical Inc. ACIST Hand Acist 1 49809 037264 534771 783929 5 Control Medical (73919) Systems Inc ACIST Manifold Acist 1 60781 676024 725581 062228 5 (53219) Medical Systems Inc Tegaderm 4 x 4 3M 1 1626W 527962 789920 580049 5 (1626W) MBrace Wrist Advanced 1 140-0250-00 066771 29702 438051 5 Support Vascular ([id number]) Dynamics EMERALD Guide Cardinal 1 502-455 778828 451548 800003 5 Wire (502-455) Health SHEATH 6FR Cardinal 1 0648732 121932 1666447 672211 5 RAIN (3233042) Health DIAGNOSTIC Terumo 1 405023 883024 375832 179089 5 Daniel 110cm 5Fr catheter (467181) [place] 1 06692T 794034 107775498 811829 5 Verrata Plus pressure wire (46981O) INFLATOR Merit Merit 1 FN4887 262056 641891 130663 15 PolyServe Medical (ZT4492) GUIDE 6FR AR Medtronic 1 [id number] 089554 82346 965196 1 2.0 catheter (FZ9GL93) WILBERT RX 3.5 x Medtronic 1 [id number] 984425 4349367 951409 5 [id number] 30 stent ([id number]) ZEPHYR REGULAR Cardinal 1 295866 844292 6892259 056053 5 TR [facility] Skybox Security (953604) Signature Audit [place] Stage Time Signature Unsigned Intra-Procedure 08/21/2019 Paty 2:28:53 PM Taiwo RT(R) (CV) Intra-Procedure 08/21/2019 Alexsander 2:29:23 PM Singh DE SANTIAGO Intra-Procedure 08/21/2019 Marcel Stapleton 2:29:45 PM [facility] [address] [place] [address]
[~2019-08-21 03:03] MED LIST changes: +BAYER CHEWABLE81 MG PO; +LOSARTAN POTASS25 MG PO; +RANITIDINE HCL150 M1 PO
[2019-08-21 03:19] VITALS: BP 148/86
[2019-08-21 03:40] LABS: BASOPHILS 0.6 % (0-2); EOSINOPHILS 4.1 % (0-7); HEMATOCRIT 49.2 % (42.0-54.0); HEMOGLOBIN 17.1 g/dL (13.5-17.5); IMMATURE GRANULOCYTES 0.6 % (0-5); LYMPHOCYTES 27.6 % (15-50); MCH 32.7 pg (26.0-34.0); MCHC 34.8 g/dL (31.0-37.0); MCV 94.1 fL (80.0-100.0); MEAN PLATELET VOLUME 9.9 fL (7.4-10.4); NEUTROPHILS 59.1 % (40-80); PLATELET COUNT 233 10x3/uL (130-400); RBC 5.23 10x6/uL (4.20-6.10); RDW 12.3 % (11.5-14.5); WBC 7.8 10x3/uL (4.8-10.8)
[2019-08-21 03:51] VITALS: BP 123/80
[2019-08-21 03:51] LABS: APTT 28.5 SECONDS (22.8-39.4); INR 0.91 (0.85-1.17); PROTIME 12.2 SECONDS (11.6-15.0)
[2019-08-21 03:52] LABS: D-DIMER-QUANTITATIVE 0.43 ug/mLFEU (0.20-0.54)
[2019-08-21 04:31] VITALS: BP 135/77
[2019-08-21 04:31] LABS: MAGNESIUM - SERUM 1.9 mg/dL (1.8-2.4)
[2019-08-21 04:32] LABS: ALKALINE PHOSPHATASE 101 U/L (46-116); ALT (SGPT) 37 U/L (10-68); CALC OSMOLALITY 282 mosm/kg (275-300); CALCIUM 8.3 mg/dL (8.5-10.1); CHLORIDE - SERUM 102 mmol/L (98-107); CREATININE - SERUM 0.8 mg/dL (0.6-1.3); GLUCOSE 176 mg/dL (74-106); POTASSIUM - SERUM 4.2 mmol/L (3.5-5.1); SODIUM 139 mmol/L (136-145); UREA NITROGEN 16 mg/dL (7-18); eGFR NON AFRICAN AMERICAN > 90 mL/min (90-120)
[2019-08-21 04:33] LABS: ALBUMIN 3.4 g/dL (3.4-5.0); BILIRUBIN - TOTAL 0.24 mg/dL (0.2-1.3); CKMB 2.8 U/L (0.0-3.6); CREATINE KINASE 74 UL (21-232); PROTEIN - SERUM 6.7 g/dL (6.4-8.2); TROPONIN-I < 0.017 ng/mL (0.000-0.060)
--- NOTE | 2019-08-21 04:55 | NUR ---
REPORT RECEIVED FROM JONNATHAN SWEET.
[2019-08-21 04:59] LABS: THYROID STIMULATING HORMONE 4.12 uIU/mL (0.36-3.74)
[2019-08-21 05:00] VITALS: BP 147/77
--- NOTE | 2019-08-21 07:57 | NUR ---
NEW PATIENT ADMIT FROM ER ARRIVAL TIME 0630. PATIENT LAYING IN BED ON BACK AWAKE, ALERT AND ORIENTED X 4. PATIENT DENIES ANY NEEDS OR PAIN. PATIENT NPO AWAITING CARDIOLOGY CONSULT. WILL CONTINUE WITH PLAN OF CARE. SR UP X 2 BED IN LOW POSITION AND CALL LIGHT IN REACH.
[2019-08-21 08:00] VITALS: BP 151/73
[2019-08-21 08:20] VITALS: BP 128/76; BMI 32.9
[2019-08-21 09:17] VITALS: Ht 177.8 cm; Wt 104.1 kg
--- NOTE | 2019-08-21 12:10 | NUR ---
PATIENT IS STABLE AND VSS. PATIENT DENIES ANY NEEDS OR PAIN. PER CALL FROM WELDING INSTRUCTOR TEAM, PATIENT PREOP ACCORDING ORDER. WILL CONTINUE TO MOITOR. SR UP X 2 BED IN LOW POSITION AND CALL LIGHT IN REACH.
--- NOTE | 2019-08-21 14:24 | HP ---
PATIENT: ROYA BOYKIN MEDICAL RECORD: [id number] ACCOUNT: [id number] LOCATION:[address] : 62 ADMISSION DATE: 08/21/19 PCP: LOREE SOLIS MD HISTORY AND PHYSICAL EXAMINATION DIAGNOSES: 1. Unstable angina. 2. Paroxysmal atrial fibrillation. 3. Coronary artery disease. 4. Previous coronary stenting. 5. Hypertension. 6. Hyperlipidemia. HISTORY OF PRESENT ILLNESS: Mr. Boykin presents with increasing episodes of chest pain and jaw pain. He was found to be in atrial fibrillation. He as well as had episodes of palpitations. The atrial fibrillation resolved. His symptomatology resolved as well. He has a history of coronary artery disease. Last cardiac stent was June 2018. He has been having episodes of chest pain and palpitations for the past month. He did not realize that he was having episodes of atrial fibrillation. His chest pain and jaw pain are like that of his previous angina prior to cardiac intervention in the past. His last intervention was June 2018. His EKG is with no acute ST-T abnormalities. PHYSICAL EXAMINATION: CONSTITUTIONAL/GENERAL APPEARANCE: Well nourished, well developed, appears stated age. EYES: Lids and conjunctivae noninjected. No discharge. No pallor. ENT: Lips within normal limit. No cyanosis. No pallor. NECK: Carotid arteries, bilateral normal upstroke. No bruits. No thrills. No jugular venous pressure or distention. CERVICAL LYMPH NODES: Nontender. Nonenlarged. THYROID: Not enlarged. No nodules. CARDIOVASCULAR: Precordial exam, nondisplaced. No heaves or pericardial thrills. Rate and rhythm, regular. Heart sounds, normal S1, normal S2. No S3, no gallop, no rub. Systolic murmur, not heard. Diastolic murmur, not heard. RESPIRATORY: Respiratory effort, unlabored. Normal curvature. No thoracic deformity. No chest wall tenderness. Percussion, resonant. Auscultation, clear. No wheezes, no rales, no rhonchi. ABDOMEN: Soft, nondistended, nontender. No abdominal pain, no vomiting and normal appetite. MUSCULOSKELETAL: No joint tenderness, normal gait, normal tone. SKIN: Warm and dry. OVERALL IMPRESSION: Increasing anginal symptomatology with episodes of atrial fibrillation. Most likely, he has recurrent hemodynamically significant coronary artery disease. We will proceed with coronary angiography. Further care depends upon the findings of the angiography. TRANSINT:[id number] Voice Confirmation ID: [id number] DOCUMENT ID: [id number] HISTORY AND PHYSICAL [id number] ROAY BOYKIN JEFFREY MD at 1424 CC: [id number] DICTATION DATE: 08/21/19917 LIPSTICK MOLDER: 08/21/19 1053 ADM IN [facility] [address] [id number]
--- NOTE | 2019-08-21 15:57 | NUR ---
PATIENT IS STABLE AND VSS. PATIENT LAYING IN BED ON BACK AWAKE, ALERT AND ORIENTED X 4. PATIENT DENIES ANY NEEDS OR PAIN. RT RADIAL DRSG C/D/I. NO SIGNS OF BLEEDING OR BRUISING. REMOVED 5 CC OF AIR FROM 10 CC. NO BLEEDING. WILL CONTINUE TO MONITOR. SR UP X 2 BED IN LOW POSITION AND CALL LIGHT IN REACH.
--- NOTE | 2019-08-21 16:56 | NUR ---
PATIENT SITTING UP IN BED AWAKE, ALERT AND ORIENTED X 4. PATIENT EATING SUPPER. REMOVED ADDITIONAL 5 CCS OF AIR FROM RT RADIAL BAND. NO BLEEDING BRUISING OR HEMATOMA NOTED. WILL CONTINUE TO MONITOR. SR UP X 2 BED IN LOW POSITION AND CALL LIGHT IN REACH.
--- NOTE | 2019-08-25 11:24 | DS ---
PATIENT:ROYA BOYKIN :62 MEDICAL RECORD: [id number] DISCHARGE SUMMARY ADMISSION DATE: 08/21/19 DISCHARGE DATE: 08/21/19 DIAGNOSES: 1. Angina. 2. Coronary artery disease. 3. Percutaneous transluminal coronary angioplasty stent right coronary artery this admission. 4. Paroxysmal atrial fibrillation. 5. Hypertension. 6. Hyperlipidemia. HOSPITAL COURSE: Mr. Boykin presents with paroxysmal atrial fibrillation and anginal symptomatology, found to have significant disease of the RCA, underwent successful PTCA stent of the RCA, was placed on sotalol 40 mg b.i.d., had no further angina, no further atrial fibrillation, discharged home to follow [facility] with [facility] 1 month. TRANSINT:[id number] Voice Confirmation ID: [id number] DOCUMENT ID: [id number] ANKITA MELGAR MD at 1124 CC: [id number] DICTATION DATE: 08/21/19 1426 PACKAGER HAND: 08/21/192109 DIS IN 08/21/19 [place] [id number] [place] [id number]
--- NOTE | 2019-08-25 11:24 | OP ---
PATIENT NAME: ROYA RAE MEDICAL RECORD: [id number] :62 LOCATION:D.M2 D.2121 ADMISSION DATE:08/21/19 SURGEON: ANKITA MELGAR MD DATE OF OPERATION: 08/21/2019 PROCEDURES: 1. PTCA stent RCA. 2. IFR. 3. Left heart catheterization. 4. Selective coronary angiography. 5. Left ventriculogram. INDICATION: Angina, coronary artery disease, and paroxysmal atrial fibrillation. DESCRIPTION OF PROCEDURE: After informed consent was obtained and after a detailed description of risks, benefits as well as alternative therapies, the patient elected to proceed with angiogram and angioplasty. The right radial area was prepped and draped in normal sterile fashion. Right radial artery was cannulated via modified Seldinger technique with the placement of 6-Divehi sheath. All catheters were exchanged through this sheath. FINDINGS: Left ventriculogram was performed in standard 30-degree DUTTON view reveals good cardiac wall motion, ejection fraction estimated 60%. SELECTIVE CORONARY ANGIOGRAPHY: 1. Left main is with no significant angiographic disease. 2. Left anterior descending has mild irregularities, but no flow-limiting stenosis. 3. The left circumflex has mild irregularities, but no flow-limiting stenosis. 4. Right coronary artery has 70% in-stent restenosis throughout the proximal mid vessel. IFR is abnormal. PTCA STENT OF THE RCA: The stent used was a 3.5 x 30 mm Leonel. Result was 0% residual stenosis. OVERALL IMPRESSION: Successful percutaneous transluminal coronary angioplasty stent of the right coronary artery going from 70% initial stenosis with an abnormal IFR to 0% residual. TRANSINT:[id number] Voice Confirmation ID: [id number] DOCUMENT ID: [id number] ANKITA MELGAR MD at 1124 CC: [id number] DICTATION DATE: 08/21/19 1425 NEEDLE LOOM OPERATOR HELPER: 08/21/19 1457 DIS IN 08/21/19 [place] [id number] [place] [id number]
--- NOTE | 2019-08-25 11:25 | EC ---
PATIENT:ROYA RAE DATE OF SERVICE: 08/21/19 SEX: M MEDICAL RECORD: [id number] DATE OF : 62 LOCATION:D.M2 D.212 AGE OF PATIENT: 59 ADMISSION DATE: 08/21/19 REFERRING PHYSICIAN: INTERPRETING PHYSICIAN: ANKITA STAPLETON MD ECHOCARDIOGRAM REPORT ECHO CHARGES 4 ECHO COMPLETE Date: 08/21/19 CLINICAL DIAGNOSIS: AFIB ECHOCARDIOGRAPHIC MEASUREMENTS (adult normal given) AC root (d.<3.7cm) 3.1 cm LV Septum d (<1.2 cm> 1.1 cm Valve Excursion 1.1 cm LV Septum (systole) 1.3 cm Left Atria (s.<4.0cm> 3.9 cm LVPW d(<1.2cm) 0.9 cm RV (d.<2.3cm) 2.8 cm LVPW (sytole) 1.0 cm LV diastole(<5.6CM) 5.9 cm MV E-F(>70mm/sec) cm LV systole 4.6 cm LVOT Diameter 2.0 cm MV exc.(>10mm) cm Est.ejection fraction (50-75%) % DOPPLER: LVIT cm/sec A 55 cm/sec E 100 cm/sec LA cm/sec RVSP 15.2 mmHg LVOT 92 cm/sec AOP1/2T m/s Asc. Ao 124 cm/sec RVOT 63 cm/sec RA cm/sec PA 92 cm/sec AV Gradient Peak 6.2 mmHg AV Mean 3.0 mmHg AV Area 2.1 cm MV Gradient Peak 3.6 mmHg MV Mean 1.0 mmHg MV Area cm COMMENTS: Slinger Sequins: Hubert ORTEGAFATUMA IVAN Restuarant Crew Worker: 1 Dr. Stapleton TAPE# PACS Pericardial Effusion N DATE OF SERVICE: 08/21/2019 PROCEDURE: Echocardiogram. FINDINGS: 1. Left ventricular chamber size is within normal limits. Left ventricular systolic function is normal. Overall ejection fraction estimated at 55% to 60%. 2. Left atrium, right atrium, and right ventricle chamber sizes are within normal limits. 3. Valvular structures have normal structure and motion. ECHOCARDIOGRAM REPORT [id number] ROYA RAE 4. Doppler interrogation reveals no significant valvular insufficiency or stenosis. Pulmonary systolic pressure estimated at 15 mmHg. 5. No evidence of pericardial effusion or left ventricular thrombus. TRANSINT:[id number] Voice Confirmation ID: [id number] DOCUMENT ID: [id number] ANKITA STAPLETON MD at 1125 CC: [id number] DICTATION DATE: 08/22/1939 CHEMICAL ENGINEERING INTERN: 08/22/19 1110 DIS IN 08/21/19 [place] [id number]
== END 2019-08-21 18:45 | disposition home or self-care (01) ==
LOC: D.ER 03:03 → OBSVTIME 06:18 → D.M2 06:18
PROVIDERS: Family Medicine; ADMIT Internal Medicine Interventional Cardiology; ATTEND Internal Medicine Interventional Cardiology
DX: I25.110 Atherosclerotic heart disease of native coronary artery with unstable angina pectoris (principal); I10 Essential (primary) hypertension; E78.5 Hyperlipidemia, unspecified; I48.0 Paroxysmal atrial fibrillation

== ENCOUNTER 2020-05-05 10:49 | Day surgery (SDC) | payer MEDICAID ==
[~2020-05-05] VITALS: Ht 177.8 cm; Wt 103.2 kg
--- NOTE | ~2020-05-05 | HEMODYNAMI ---
PATIENT:ROYA RAE MEDICAL RECORD: [id number] : 62 LOCATION:D.CAT ADMISSION DATE: 05/05/20 Generatedon:05/05/202013:28 Patient name: ROYA RAE Patient #: [id number] SSN: [id number] : 1960 Date of study: 05/05/2020 Page: Of Hemodynamic Procedure Report Patient Data Patient Demographics Procedure consent was obtained First Name: ROYA Gender: Male Last Name: BUTCH : 1960 [facility] Initial: LOLITA Age: 59 year(s) Patient #: [id number] Race: SSN: [id number] Additional ID: [id number] Contact details Address: [address] [facility] State: [place] City: [place] Zip code: [address] Past Medical History Allergies Allergen Reaction Date Comments Reported Other allergy 10/28/2017 PLAVIX Other allergy 08/21/2019 PCN/CLOPIDOGREL(FROM PLAVIX) Other allergy 05/05/2020 PCN/CLOPIDOGREL(FROM PLAVIX) Admission Admission Data Admission Date: 05/05/2020 Admission Time: 10:49 Arrival Date: 05/05/2020 Arrival Time: 0:00 Admit Source: Other Insurance Payor: Private health insurance [facility] #: [id number] Height (in.): 62 BSA: 2.03 (m2) Height (cm.): 157.48 BMI: 42.07 (kg/m2) Weight (lbs.): 230 Weight (kg.): 104.33 Lab Results Lab Result Date: 05/05/2020 Lab Result Time: 0:00 Biochemistry Name Units Result Min Max BUN mg/dl 20 --(----)*- 7 18 Creatinine mg/dl 0.7 --(*---)-- 0.6 1.3 eGFR ml/min 90 --(*---)-- 90 120 NONAFRICAN CBC Name Units Result Min Max Hematocrit % 43.3 --(*---)-- 42 54 Hemoglobin g/dl 14.8 --(-*--)-- 13.5 17.5 Procedure Procedure Types Cath Procedure Diagnostic Procedure PPM/ICD PPM Dual Implant Sedation Charges Moderate Sedation up to 30 minutes Procedure Description Procedure Date Procedure Date: 05/05/2020 Procedure Start Time: 12:47 Procedure End Time: 13:26 Procedure Staff Name Function Jovan Willis MD Performing Physician Alexsander Winters RN Nurse Ashwini Myers RT Scrub Paty Maravilla RT Monitor Christoph Quintero MD Assisting physician Indication Bradycardia Procedure Data Cath Procedure Fluoroscopy Diagnostic fluoroscopy Total fluoroscopy Time: 4.5 time: 4.5 min min Diagnostic fluoroscopy Total fluoroscopy dose: dose: 158.11 mGy 158.11 mGy Estimated blood loss: 5 ml Procedure Complications No complications Procedure Medications Medication Administration Route Dosage 0.9% NaCl I.V. 100 ml/hr Oxygen etCO2 Nasal cannula 2 l/min Lidocaine 1% added to field 20 Vancomycin I.V.P.B 1 g Vancomycin 500 mg Irrigation Versed I.V. 2 mg Fentanyl I.V. 100 mcg Versed I.V. 1 mg Fentanyl I.V. 50 mcg Versed I.V. 1 mg Fentanyl I.V. 50 mcg Versed I.V. 1 mg Versed I.V. 1 mg Hemodynamics Rest BSA: 2.03 (m2) O2 Consumption: Estimated: 276.08 (ml/min) O2 Consumption indexed : Estimated:136 (ml/min/m) Pre Cath Intra NCS Post Cath Vital Signs Time Heart Resp SPO2 etCO2 NIBP (mmHg) Rhythm Pain Sedation Rate (ipm) (%) (mmHg) Status Level (bpm) 12:17:34 53 17 99 33.8 145/69(113) SB 0 (11) 10(A) , No pain 12:21:40 50 19 98 41.3 119/59(93) SB 0 (11) 10(A) , No pain 12:25:54 50 14 96 37.6 104/54(77) SB 0 (11) 10(A) , No pain 12:30:04 48 15 96 40.6 103/53(82) SB 0 (11) 10(A) , No pain 12:34:12 47 14 96 40.6 105/54(75) SB 0 (11) 10(A) , No pain 12:38:12 47 11 98 36.1 83/69(82) SB 0 (11) 10(A) , No pain 12:43:05 52 11 99 24 134/82(113) SB 0 (11) 10(A) , No pain 12:47:18 51 18 97 34.5 130/71(107) SB 0 (11) 10(A) , No pain 12:51:32 51 16 97 33.8 128/68(98) SB 0 (11) 9(A) , No pain 12:55:40 73 10 96 45.9 105/59(81) SB 0 (11) 9(A) , No pain 12:59:48 49 12 96 46.6 100/58(83) SB 0 (11) 9(A) , No pain 13:03:52 70 12 96 42.1 101/65(81) SB 0 (11) 9(A) , No pain 13:07:57 57 13 96 42.9 101/59(77) SB 0 (11) 9(A) , No pain 13:12:03 57 17 98 40.6 102/62(82) Paced 0 (11) 10(A) , No pain 13:16:56 79 16 97 40.6 123/72(96) Paced 0 (11) 10(A) , No pain 13:21:06 54 18 99 33.8 121/68(102) Paced 0 (11) 10(A) , No pain 13:25:06 0 110/67(102) Paced 0 (11) 10(A) , No pain Medications Time Medication Route Dose Verified Delivered Reason Notes Effectiv eness by by 12:15:40 0.9% NaCl I.V. 100 Alexsander Alexsander Per ml/hr Singh Winters physician RN RN 12:15:53 Oxygen etCO2 2 Alexsander Alexsander for low 02 Nasal l/min Singh Winters sats cannula RN RN 12:16:20 Lidocaine added 20ml Alexsander Alexsander for local 1% to vial Singh Winters anesthetic field ( x2 RN RN ) 12:16:42 Vancomycin I.V.P.B 1 g Alexsander Alexsander Per Singh Winters physician RN RN 12:17:14 Vancomycin Topical 500mg Alexsander Alexsander used for Irrigation (added Singh Winters procedure to the RN field support specialist) 12:44:49 Versed I.V. 2 mg Alexsander Alexsander for Lorigan Lorigan sedation RN RN 12:44:57 Fentanyl I.V. 100 Alexsander Alexsander for mcg Lorigan Lorigan sedation RN RN 12:46:53 Versed I.V. 1 mg Alexsander Alexsander for Lorigan Lorigan sedation RN RN 12:47:00 Fentanyl I.V. 50 Alexsander Alexsander for mcg Lorigan Lorigan sedation RN RN 12:48:57 Versed I.V. 1 mg Alexsander Alexsander for Lorigan Lorigan sedation RN RN 12:49:04 Fentanyl I.V. 50 Alexsander Alexsander for mcg Lorigan Lorigan sedation RN RN 12:50:22 Versed I.V. 1 mg Alexsander Alexsander for Lorigan Lorigan sedation RN RN 13:02:31 Versed I.V. 1 mg Alexsander Alexsander for Lorigan Lorigan sedation RN hollow ware maker Log Time Note 11:56:48 Arrival Date: 05/05/2020 12:00:00 AM 11:57:10 Admit Source: Other 11:57:13 Insurance Payor : Private health insurance 11:57:23 Patient Weight : 230 lbs 11:57:30 Patient Height : 62 inches 11:57:43 Diagnostic Cath Status : Elective 11:58:35 Procedure Status Elective Heart Cath (OP). 11:58:39 Alexsander Winters RN sent for patient. Start room use. 11:58:40 Time tracking: Regular hours (M-F 7:00 - 5:00) 11:58:44 Plan of Care:Hemodynamics will remain stable., Cardiac rhythm will remain stable., Comfort level will be maintained., Respiratory function will remain adequate., Patient/ family verbilizes understanding of procedure., Procedure tolerated without complication., Recovers from procedure without complications.. 12:02:18 Indication : Bradycardia 12:02:25 Informed consent obtained and on chart 12:02:51 Patient received from Pre/Post Procedure Room to CCL 3 Alert and oriented. Tansferred to table in Supine position. 12:06:13 Patient diabetic? No. 12:06:17 Is patient on blood thinner?Yes 12:06:25 ACC The patient was administered the following blood thiners within the last 24 hours: ACCBrilinta last dose 04-30-2020. 12:07:13 Warm blankets applied, and namrata hugger turned on for patient comfort. 12:07:14 Correct patient and procedure confirmed by team. 12:07:15 ECG and BP/O2 sat monitors applied to patient. 12:07:38 H&P Date Dictated: 05/05/2020 H&P Addendum completed by physician on day of procedure. (MUST COMPLETE FOR ALL OUTPATIENTS), New H&P dictated by physician.. 12:07:46 Pre-procedure instructions explained to patient. 12:07:47 Pre-op teaching completed and patient verbalized understanding. 12:07:53 Family in waiting room. 12:07:56 Patient NPO since Midnight. 12:08:46 Patient allergic to Other allergyPCN/CLOPIDOGREL(FROM PLAVIX) 12:09:42 Was the patient premedicated? Yes 12:09:52 ----Pre-sedation anethsthesia assessment.---- 12:09:57 Previous problem with sedation/anesthesia? No ? 12:09:59 Snore? Yes 12:10:04 Sleep apnea? No 12:10:08 Deviated septum? Unknown 12:10:11 Opens mouth fully? Yes 12:10:14 Sticks out tongue? Yes 12:11:07 Airway obstruction? No ? 12:11:12 Dentures? No ? 12:11:30 IV patent on arrival in left forearm with 0.9% NaCl at [facility]. 12:12:13 Lab Result : Creatinine 0.7 mg/dl 12:12:13 Lab Result : BUN 20 mg/dl 12:12:13 Lab Result : Hemoglobin 14.8 g/dl 12:12:13 Lab Result : eGFR NONAFRICAN 90 ml/min 12:12:13 Lab Result : Hematocrit 43.3 % 12:12:19 Lab results completed and on chart. 12:12:41 Use device set KALIA PPM 12:12:44 2-0 Ticron Multipack ([id number]) opened to sterile field. 12:12:44 3-0 Vicryl Single Pack [id number] opened to sterile field. 12:12:46 5-0 Monocryl PS2 [id number] opened to sterile field. 12:12:47 Cautery Tip Functional Director opened to sterile field. 12:12:48 Cautery Pushbutton Pencil opened to sterile field. 12:12:49 Mepilex Dressing (043686) opened to sterile field. 12:13:16 Immobilizer Large opened to sterile field. 12:13:33 Medtronic business development representative MIN ZHU present for procedure. 12:13:53 Left chest area was prepped with chlora-prep and draped in sterile fashion 12:13:59 Alarms reviewed by R. N. 12:13:59 Sharps counted by scrub and verified by R.N. 12:15:03 Pre sharps counted by scrub and verified by RN: Sutures: 7; Sponges: 5; Stick needles: 2; Skin needles: 2; Blade: 1; Cautery: 1 12:15:19 Grounding pad site Left thigh. 12:15:21 Grounding pad site free from injury. 12:15:40 0.9% NaCl 100 ml/hr I.V. was administered by Alexsander Winters RN; Per physician; Verbal order read back and verified. 12:15:53 Oxygen 2 l/min etCO2 Nasal cannula was administered by Alexsander Winters RN; for low 02 sats; Verbal order read back and verified. 12:16:20 Lidocaine 1% 20ml vial ( x2 ) added to field was administered by Alexsander Winters RN; for local anesthetic; Verbal order read back and verified. 12:16:31 Vital chart was started 12:16:42 Vancomycin 1 g I.V.P.B was administered by Alexsander Winters RN; Per physician; Verbal order read back and verified. 12:17:14 Vancomycin Irrigation 500mg Topical (added to the field) was administered by Alexsander Winters RN; used for procedure; Verbal order read back and verified. 12:19:49 Medtronic 4074-52 PPM Lead opened to sterile field. 12:19:51 Medtronic 4574-45 PPM Lead opened to sterile field. 12:20:[address] Generator [id number] opened to sterile field. 12:43:57 Physician arrived 12:43:58 --------ALL STOP TIME OUT------ 12:43:59 Final Timeout: patient, procedure, and site verified with staff and physician. All members of the team are in agreement. 12:44:02 Left chest site verified by team. 12:44:18 Fire Safety Assessment: A--An alcohol-based skin anteseptic being used preoperatively., B--The operative or invasive procedure is being performed above the xiphoid process or in the oropharynx., C--Open oxygen or nitrous oxide is being used., E--There are other possible contributors. 12:44:23 Physical assessment completed. ASA score P 2 - A patient with mild systemic disease as per Jovan Willis MD. 12:44:32 Sedation plan: IV Moderate Sedation Medication:Versed, Fentanyl 12:44:49 Versed 2 mg I.V. was administered by Alexsander Winters RN; for sedation; Verbal order read back and verified. 12:44:57 Fentanyl 100 mcg I.V. was administered by Alexsander Winters RN; for sedation; Verbal order read back and verified. 12:46:53 Versed 1 mg I.V. was administered by Alexsander Winters RN; for sedation; Verbal order read back and verified. 12:47:00 Fentanyl 50 mcg I.V. was administered by Alexsander Winters RN; for sedation; Verbal order read back and verified. 12:47:05 Procedure started. 12:47:05 Full Disclosure recording started 12:47:13 Lidocaine 1% was administered to left subclavicular area by Christoph Quintero MD . 12:48:57 Versed 1 mg I.V. was administered by Alexsander Winters RN; for sedation; Verbal order read back and verified. 12:49:04 Fentanyl 50 mcg I.V. was administered by Alexsander Winters RN; for sedation; Verbal order read back and verified. 12:50:22 Versed 1 mg I.V. was administered by Alexsander Winters RN; for sedation; Verbal order read back and verified. 12:50:39 Incision made to left subclavicular area. 12:51:55 Generator pocket made/opened. 12:52:11 Left subclavian vein accessed with 7Fr Peel Away Sheath. 12:52:16 Left subclavian vein accessed with 7Fr Peel Away Sheath. 12:53:46 Ventricular lead inserted and advanced. 12:53:49 Atrial lead inserted and advanced. 12:53:53 Ventricular lead positioned. 12:53:57 Atrial lead positioned. 12:55:29 Ventricular lead tested. 12:55:34 Atrial lead tested. 13:01:19 Peel-a-way sheath was split and removed. 13:01:21 Peel-a-way sheath was split and removed. 13:01:48 Atrial lead attachment was completed with 2-0 ticron. 13::59 Ventricular lead attachment was completed with 2-0 ticron. 13:02:31 Versed 1 mg I.V. was administered by Alexsander Winters RN; for sedation; Verbal order read back and verified. 13:04:13 PPM Dual was attached to lead(s) and inserted into pocket. 13:04:30 PPM Dual was inserted subcutaneously to left chest. 13:07:59 Atrial lead repositioned. 13:11:50 Atrial lead tested. 13:13:15 Atrial lead attachment was completed with 2-0 ticron. 13:15:12 Device pocket was irrigated with Vancomycin. 13:15:26 Generator was sutured in place with 2-0 ticron. 13:16:02 Subcutaneous closure was completed with 3-0 vicryl plus. 13:16:16 Skin closure was completed with 5-0 monocryl. 13:17:10 Parameters-- Generator: Mode: AAIR/DDDR. Lower Rate: 60bpm. Upper Rate: 120bpm. 13:18:01 Parameters--Ventricular P/R Wave: 11.0mV. Current: 0.5mA; Threshold: 0.7V; Impedence: 1543OHMS. 13:19:16 Parameters--Atrial P/R Wave: 2.9mV. Current: 0.5mA; Threshold: 0.3V; Impedence: 524OHMS. 13:20:00 Post sharps counted by scrub and verified by RN: Sutures: 7; Sponges: 5; Stick needles: 2; Skin needles: 2; Blade: 1; Cautery: 1 13:20:08 Lt Chest incision was dressed with 4 x 4 and Tegaderm. 13:20:20 Procedure ended.(Physican Out) 13:20:34 Fluoroscopy time 04.50 minutes. 13:20:43 Fluoroscopy dose: 158.11 mGy 13:20:43 Flurop Dose total: 158.11 13:20:53 Dose Area Product 2082.42 mGy/cm. 13:20:57 Sharps counted by scrub and verified by R.N. 13:21:14 Post Chest area:stable 13:21:24 Post-procedure physical assessment completed. ASA score P 2 - A patient with mild systemic disease as per Jovan Willis MD. 13:21:29 Post procedure rhythm: paced 13:23:35 Estimated blood loss: 5 ml 13:23:45 Post procedure instruction explained to patient.Patient verbalizes understanding. 13:23:47 Patient needs reinforcement of post procedure teaching. 13:24:37 Procedure type changed to Cath procedure, Diagnostic procedure, PPM/ICD, PPM Dual Implant, Sedation Charges, Moderate Sedation up to 30 minutes 13:24:41 Procedure and supply charges have been captured, reviewed, submitted and are correct. 13:25:14 Procedure Complication : No complications 13:25:20 Vital chart was stopped 13:25:49 See physician's report for complete and final results. 13:26:00 Operative report dictated upon procedure completion. 13:26:03 Report given to Pre/Post Procedure Room. 13:26:08 Patient transfered to Pre/Post Procedure Room with Stretcher. 13:26:11 Procedure ended. 13:26:11 Full Disclosure recording stopped 13:26:15 End room use (Document Last) Device Usage Item Name Manufacture Quantity Catalog Hospital Part Current Minima l Lot# / Number Charge Number Stock Stock Serial# Code 2-0 Ticron Ethicon 7 [id number] 25264 [id number] 5 Multipack ([id number]) 3-0 Vicryl Ethicon 1 [id number] 701643 650187 [id number] 5 Single Pack [id number] 5-0 Monocryl Ethicon 1 [id number] 426179 740058 599899 5 PS2 Y495G Cautery Tip Microtek 1 [id number] 531749 887483 891191 5 Functional [employer] Cautery Microtek 1 [id number] 495679 54702 323269 5 Pushbutton [employer] Pencil Mepilex Cardinal 1 338114 409410 305237 826432 5 [facility] ([id number]) Immobilizer Cardinal 1 [id number] 670552 467149 053351 5 [facility] Medtronic Medtronic 1 4074-52 733740 174772 627488 5 4074-52 PPM [id number] Lead 06-04 Medtronic Medtronic 1 875445 727364 360288 656284 5 4574-45 PPM [id number] Lead 02-11 Medtronic Medtronic 1 [id number] 228991 [id number] 384518 [address] [id number] Generator 07-30 W1DR01 Signature Audit [place] Stage Time Signature Unsigned Intra-Procedure 05/05/2020 Paty 1:26:37 PM Taiwo RT(R) (CV) Intra-Procedure 05/05/2020 Alexsander 1:27:36 PM Singh DE SANTIAGO Intra-Procedure 05/05/2020 Jovan Becerra 1:28:06 PM Derrell [facility] [address] [id number]
[2020-05-05] MEDS ORDERED: BETAPACE 120 M120 MG PO (11:11)
[2020-05-05 11:18] VITALS: BP 144/58; Ht 177.8 cm; Wt 103.2 kg
[2020-05-05 11:23] LABS: HEMATOCRIT 43.3 % (42.0-54.0); HEMOGLOBIN 14.8 g/dL (13.5-17.5); MCH 31.9 pg (26.0-34.0); MCHC 34.2 g/dL (31.0-37.0); MCV 93.3 fL (80.0-100.0); MEAN PLATELET VOLUME 9.2 fL (7.4-10.4); RBC 4.64 10x6/uL (4.20-6.10); RDW 12.9 % (11.5-14.5); WBC 7.7 10x3/uL (4.8-10.8)
[2020-05-05 11:36] LABS: CALC OSMOLALITY 277 mosm/kg (275-300); CHLORIDE - SERUM 104 mmol/L (98-107); CREATININE - SERUM 0.7 mg/dL (0.6-1.3); POTASSIUM - SERUM 4.3 mmol/L (3.5-5.1); SODIUM 137 mmol/L (136-145); UREA NITROGEN 20 mg/dL (7-18); eGFR NON AFRICAN AMERICAN > 90 mL/min (90-120)
[2020-05-05 11:37] LABS: GLUCOSE 117 mg/dL (74-106)
[2020-05-05 12:18] LABS: APTT 23.3 SECONDS (22.8-39.4); INR 1.08 (0.85-1.17)
--- NOTE | 2020-05-05 13:35 | NUR ---
PT RECEIVED BACK TO ROOM FOR RECOVERY AFTER PACEMAKER PLACEMENT. PT AWAKE AND ALERT, DENIES PAIN OR DISCOMFORT. IV PATENT INFUSING VIA L ARM PER ORDERS. PT PLACED ON CARDIAC MONITORS, HR PACED AT 52, BP 138/64, RR 21, SAT 98 ON ROOM AIR. SM MEPILEX DRESSING TO L UPPER CHEST, NO BLEEDING DRESSING CDI. CALL LIGHT IN REACH. PO FLUIDS GIVEN.
--- NOTE | 2020-05-05 13:58 | NUR ---
PT SITTING UP IN BED, NO C/O PAIN OR DISCOMFORT. ARM REMAINS IN SLING AND STABILIZED. VSS AT PRESENT. MEPILEX DRESSING CDI NO S/S BLEEDING. CALL LIGHT IN REACH
--- NOTE | 2020-05-05 14:41 | NUR ---
XRAY AT BS. PT DOING WELL, DENIES PAIN OR NEEDS. VSS. CALL LIGHT IN REACH
--- NOTE | 2020-05-05 15:14 | NUR ---
DISCHARGE INSTRUCTIONS REVIEWED W PT, HE VERBALIZED UNDERSTANDING. IV REMOVED W CATH INTACT. MONITORS REMOVED. PT UP TO DRESS FOR DISCHARGE.
--- NOTE | 2020-05-05 15:21 | NUR ---
PT DISCHARGED VIA WC TO FAMILY WAITING IN PRIVATE VEHICLE. PT HAD ALL BELONGINGS AND ARM SECURE IN SLING.
--- NOTE | 2020-05-06 08:55 | OP ---
PATIENT NAME: ELIGIO BOYKIN MEDICAL RECORD: [id number] :62 LOCATION:D.CAT ADMISSION DATE: SURGEON: ELMA BROWNING MD DATE OF OPERATION: 05/05/2020 PROCEDURE: Lead portion of permanent pacemaker placement. INDICATION: Sick sinus syndrome with pauses. SURGEON: Christoph Quintero MD DESCRIPTION OF PROCEDURE: After left subclavian was cannulated via modified Seldinger technique via Dr. Quintero first under fluoroscopic guidance, I placed the RV lead in the RV apex without difficulty. After adequate R waves and thresholds were obtained, we then attached right atrial lead in the right atrial appendage without difficulty. After adequate P waves and thresholds were obtained, the leads were attached to appropriate poles of the generator and the pocket was closed via Dr. Quintero. IMPRESSION: Successful lead portion of permanent pacemaker placement of Eligio Boykin. COMPLICATIONS: None. ESTIMATED BLOOD LOSS: Minimal. DISPOSITION: To the floor, stable. NTS:[id number] Voice Confirmation ID: [id number] DOCUMENT ID: [id number] ELMA BROWNING MD at 0855 CC: [id number] DICTATION DATE: 05/05/20 1324 LOW PRESSURE BOILER TENDER: 05/05/202058 [facility] 05/05/20 [id number] [place] [address]
--- NOTE | 2020-05-09 14:09 | OP ---
PATIENT NAME: ROYA RAE MEDICAL RECORD: [id number] :62 LOCATION:D.CAT ADMISSION DATE: SURGEON: LALA MOTTA MD DATE OF OPERATION: 05/05/2020 PREOPERATIVE DIAGNOSES: 1. Sick sinus syndrome with pauses. 2. Hypertension. 3. Atrial fibrillation. 4. Tobacco dependence syndrome. POSTOPERATIVE DIAGNOSES: 1. Sick sinus syndrome with pauses. 2. Hypertension. 3. Atrial fibrillation. 4. Tobacco dependence syndrome. PROCEDURE: 1. Left subclavian vein dual lead pacemaker placement. 2. Fluoroscopic interpretation. SURGEON: Laal Motta MD CO-SURGEON: Jovan Weaver MD REPORT OF OPERATION: The patient's left chest was prepped and draped in sterile fashion. A 20 mL of 1% lidocaine with epinephrine was infused into the surrounding tissues. A transverse incision was made on the left superolateral chest and a subcutaneous pouch was made over the pectoral fascia. [place] were used to cannulate the left subclavian vein and guidewires were advanced times 2. Fluoro was used to note that the wires were in good position in the venous system. Dilator trocar devices were placed over the wires and the wires and dilators were removed. The leads were advanced through the trocars until they rested in the superior vena cava. Dr. Weaver positioned the leads appropriately in the atrium and ventricle. Once the leads were noted to be in good position, then they were sutured into place with 2-0 Ti-Cron. The leads were affixed to the pacemaker which was placed into the subcutaneous pouch and sutured to the pectoral fascia with a single 2-0 Ti-Cron. The wound bed was irrigated out with antibiotic solution. The subcutaneous tissues were reapproximated with interrupted 3-0 Vicryl and the skin was closed with running subcutaneous 5-0 Monocryl. COMPLICATIONS: None. CONDITION: Stable. ANESTHESIA: Local MAC. BLOOD LOSS: Minimal. NTS:[id number] Voice Confirmation ID: [id number] DOCUMENT ID: [id number] OPERATIVE REPORT [id number] ROYA RAE LAAL MOTTA MD at 1409 CC: [id number] DICTATION DATE: 05/05/20 1322 PEGA DEVELOPER: 05/05/202043 [facility] 05/05/20 [facility] [address] [place] [address]
== END 2020-05-05 15:20 | disposition home or self-care (01) ==
LOC: D.CATH 10:49
PROVIDERS: ATTEND Internal Medicine Interventional Cardiology
DX: I25.10 Atherosclerotic heart disease of native coronary artery without angina pectoris (principal); I48.91 Unspecified atrial fibrillation; I10 Essential (primary) hypertension; E78.5 Hyperlipidemia, unspecified; I49.5 Sick sinus syndrome; Z72.0 Tobacco use